=== PATIENT | female | born 1935 | race Caucasian/White ===

== ENCOUNTER 2017-02-17 06:44 | Inpatient (IN) | payer MEDICARE ==
[~2017-02-17] VITALS: Ht 147.3 cm; Wt 64.0 kg
--- NOTE | 2017-02-17 06:45 | NUR ---
TO BED 3 BIB PARAMEDICS C/O SYNCOPE. PT AAOX4 NO ACUTE DISTRESS NOTED, RESP EVEN AND UNLABORED. PLACE PT ON CARDIAC MONITORING, CONTINUOUS POX. ER MD AT BEDSIDE TO EVAL PT WITH ORDERS RECEIVED. PUPILS PERRLA, PT ABLE TO MOVE ALL EXTREMITIES WELL WITH BILATERAL EQUAL NURSES' REGISTRY DIRECTOR. CALL LIGHT WIHTIN REACH. WILL CONTINUE TO MONITOR PT.
[2017-02-17] MEDS ORDERED: IV NS 0.9% 500 ML BAG IV ONE (07:00)
[2017-02-17] MEDS ORDERED: ONDANSETRON HCL/PF 4 MG/2 ML VIAL IVP ONE (07:00)
--- NOTE | 2017-02-17 07:02 | NUR ---
PHLEBOBOTMIST AT BEDSIDE FOR BLOOD DRAW.
--- NOTE | 2017-02-17 07:04 | NUR ---
PT MERARI LIZZIE , .
--- NOTE | 2017-02-17 07:07 | NUR ---
TEMP UNABLE TO BE OBTAINED AT THIS TIME, PT REFUSING RECTAL TEMP, MADE AWARE
[2017-02-17] MEDS ORDERED: ONDANSETRON HCL/PF 4 MG/2 ML VIAL ONE (07:13)
[2017-02-17 07:14] LABS: BASOPHILS % (AUTO) 0.2 % (0.0-2.0); EOSINOPHILS % (AUTO) 0.5 % (0.0-6.0); HEMATOCRIT 39 % (33-45); HEMOGLOBIN 12.8 g/dL (11.5-14.8); LYMPHOCYTES # (AUTO) 0.8 /CMM (0.8-4.8); LYMPHOCYTES % (AUTO) 10.6 % (20.0-44.0); MEAN CORPUSCULAR HEMOGLOBIN 30 PG (26.0-33.0); MEAN CORPUSCULAR HGB CONC 33 g/dl (31.0-36.0); MEAN CORPUSCULAR VOLUME 91 fL (82-100); MONOCYTES # (AUTO) 0.2 /CMM (0.1-1.30); MONOCYTES % (AUTO) 3.2 % (2.0-12.0); NEUTROPHILS # (AUTO) 6.6 /CMM (1.8-8.9); NEUTROPHILS % (AUTO) 85.5 % (43.0-81.0); PLATELET COUNT (AUTO) 184 /CMM (150-450); RDW COEFFICIENT OF VARIATION 13.1 (11.5-15.0); RED BLOOD CELL COUNT(AUTO) 4.28 MIL/uL (4.0-5.2); WHITE BLOOD COUNT (AUTO) 7.7 K/uL (4.3-11.0)
--- NOTE | 2017-02-17 07:16 | NUR ---
RN AT BEDSIDE TO MEDICATE PT.
--- NOTE | 2017-02-17 07:16 | NUR ---
REPORT GIVEN TO AM SHIFT MAKSIM REED.
[2017-02-17 07:38] LABS: TROPONIN I 0.154 ng/mL (0.00-0.056)
--- NOTE | 2017-02-17 07:40 | NUR ---
FAMILY MEMBER AT BS AND UPDATED WITH POC.
[2017-02-17 07:42] LABS: CALCIUM, SERUM 10.2 mg/dL (8.5-10.1); CARBON DIOXIDE 24 mmol/L (21-32); CHLORIDE 94 mmol/L (98-107); CREATININE 0.8 mg/dL (0.6-1.3); GLUCOSE 111 mg/dL (74-106); POTASSIUM 4.2 mmol/L (3.5-5.1); SODIUM SERUM 130 mmol/L (136-145); UREA NITROGEN, BLOOD 15 mg/dL (7-18)
[2017-02-17] MEDS ORDERED: IV NS 0.9% 500 ML IV ONE (08:30)
[2017-02-17] MEDS ORDERED: IV NS 0.9% 1,000 ML IV PRN (08:36)
--- NOTE | 2017-02-17 08:47 | NUR ---
REPORT GIVEN TO UQENTIN SCHAEFFER FOR TELE 310.
[2017-02-17] MEDS ORDERED: CHLO25TA2 PO (08:51)
[2017-02-17] MEDS ORDERED: PRAV20TA4 PO (08:51)
[2017-02-17] MEDS ORDERED: ASPI-991 PO (08:51)
[2017-02-17] MEDS ORDERED: TEMA15CA PO (08:51)
[2017-02-17] MEDS ORDERED: DILT-48 PO (08:51)
[2017-02-17] MEDS ORDERED: BUDE10.22 IH (08:51)
[2017-02-17] MEDS ORDERED: OMEP20CA10 PO (08:51)
[2017-02-17] MEDS ORDERED: ESTR0.5T PO (08:51)
[2017-02-17] MEDS ORDERED: BUDE180A IH (08:51)
[2017-02-17] MEDS ORDERED: ACET-2605 PO (08:51)
[2017-02-17] MEDS ORDERED: LORA10TA7 PO (08:51)
[2017-02-17] MEDS ORDERED: FLUT16SP16 NS (08:51)
[2017-02-17] MEDS ORDERED: LISI40TA4 PO (08:51)
[2017-02-17] MEDS ORDERED: POLY17PO4 PO (08:52)
[2017-02-17] MEDS ORDERED: HYDROCODONE/APAP 5/325MG 1 EACH TABLET PO PRN (09:00)
[2017-02-17] MEDS ORDERED: FLUTICASONE PROPIONATE 16 GM BOTTLE NS SCH (09:00)
[2017-02-17] MEDS ORDERED: ACETAMINOPHEN 325 MG TABLET PO PRN (09:00)
[2017-02-17] MEDS ORDERED: MAG HYDROX/AL HYDROX/SIMETH 30 ML UDC PO PRN (09:00)
[2017-02-17] MEDS ORDERED: HYDROCODONE/APAP 10/325MG 1 EA TABLET PO PRN (09:00)
[2017-02-17] MEDS ORDERED: MAGNESIUM HYDROXIDE 30 ML UDC PO PRN (09:00)
[2017-02-17] MEDS ORDERED: TEMAZEPAM 15 MG CAPSULE PO PRN (09:00)
[2017-02-17] MEDS ORDERED: ONDANSETRON HCL/PF 4 MG/2 ML VIAL IVP PRN (09:00)
[2017-02-17] MEDS ORDERED: ESTRADIOL 1 MG TABLET PO SCH (09:00)
--- NOTE | 2017-02-17 09:29 | NUR ---
DR. JANG AT BS.
[2017-02-17] MEDS: ASPIRIN EC 81 MG TABLET.DR PO SCH (10:33)
[2017-02-17] MEDS: FAMOTIDINE (20 MG) 20 MG TABLET PO SCH (10:33)
[2017-02-17] MEDS: DILTIAZEM HCL CD 240 MG PO SCH (10:33)
[2017-02-17] MEDS: LISINOPRIL (20MG) 20 MG TABLET PO SCH (10:34)
[2017-02-17] MEDS: LORATADINE 10 MG TABLET PO SCH (10:34)
[2017-02-17] MEDS: ENOXAPARIN SODIUM 40 MG/0.4 ML DISP.SYRIN SQ SCH (10:36)
[2017-02-17] MEDS: BUDESONIDE RESPULE INH 0.25 MG/2 ML AMPUL.NEB NEB SCH (10:39)
[2017-02-17] MEDS: FLUTICASONE/VILANTEROL 1 EACH BLST.W.DEV IH SCH (10:43)
[2017-02-17] MEDS: FLUTICASONE PROPIONATE 16 GM BOTTLE NS SCH (11:04)
[2017-02-17] MEDS: ESTRADIOL 1 MG TABLET PO SCH (11:04)
--- NOTE | 2017-02-17 11:11 | NUR ---
TEL RN ADMITTING NOTES PATIENT ADMITTED TO UNIT VIA GURNEY ACCOMPANIED BY AND ER NURSE DEREK. A/O X3 AND VERBALLY RESPONSIVE, NO C/O PAIN OR SYNCOPE AT THIS TIME. 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 PT ORIENTED TO ROOM/UNIT. PT PLACED ON TELE-MONITORING WITH CURRENT READING OF SINUS RHYTHM AND HR OF 69. PT ON ROOM AIR, BREATHING EVEN AND UNLABORED. SKIN IS INTACT. PT WITH IV ACCESS ON RIGHT WRIST G#18, IVF OF NS @ 75ML/HR STARTED, NO INFILTRATION NOTED. BED PLACED IN LOW AND LOCKED POSITION. CALL LIGHT AND BEDSIDE TABLE PLACED WITHIN REACH OF PT. WILL CONTINUE TO MONITOR PT ACCORDINGLY.
[2017-02-17 12:00] VITALS: BP 122/71
[2017-02-17 16:00] VITALS: BP 111/54
--- NOTE | 2017-02-17 18:58 | NUR ---
MERCHANT POLICE CLOSING NOTES PT RESTING IN BED AT MODERATE HIGH BACKREST POSITION. A/O X 3, SAME ABLE TO VERBALIZED NEEDS AND CONCERNS. ON ROOM AIR, BREATHING WELL WITH NO SOB NOTED. ON TELE-MONITORING WITH CURRENT READING OF SR AND HR OF 72, NO C/O CHEST PAIN OR DIZZINESS THROUGHOUT THE DAY. IV ACCESS ON RIGHT WRIST G#18 INTACT AND PATENT WITH IVF OF NS @ 75 ML INFUSING WELL, NO SIGNS OF INFILTRATION NOTED. HOB KEPT ELEVATED. MAINTAINED BED IN LOW AND LOCKED POSITION. CALL LIGHT AND BEDSIDE TABLE WITHIN REACH OF PT. ALL NEEDS AND CARE ATTENDED WELL. WILL ENDORSED TO RECONNAISSANCE CREWMEMBER NURSE FOR [place].
[2017-02-17 20:00] VITALS: BP 139/72
[2017-02-17] MEDS ORDERED: ATORVASTATIN 10 MG TABLET ONE (22:54)
[2017-02-17] MEDS: ATORVASTATIN 10 MG TABLET PO SCH (23:07)
[2017-02-18] VITALS: BP 139/80
[2017-02-18 04:00] VITALS: BP 129/69
[2017-02-18 06:40] LABS: BASOPHILS % (AUTO) 0.2 % (0.0-2.0); HEMATOCRIT 32 % (33-45); HEMOGLOBIN 11.2 g/dL (11.5-14.8); LYMPHOCYTES # (AUTO) 0.7 /CMM (0.8-4.8); LYMPHOCYTES % (AUTO) 23.3 % (20.0-44.0); MEAN CORPUSCULAR HEMOGLOBIN 31 PG (26.0-33.0); MEAN CORPUSCULAR HGB CONC 35 g/dl (31.0-36.0); MEAN CORPUSCULAR VOLUME 90 fL (82-100); MONOCYTES # (AUTO) 0.3 /CMM (0.1-1.30); MONOCYTES % (AUTO) 9.7 % (2.0-12.0); NEUTROPHILS # (AUTO) 2.1 /CMM (1.8-8.9); NEUTROPHILS % (AUTO) 66.8 % (43.0-81.0); PLATELET COUNT (AUTO) 187 /CMM (150-450); WHITE BLOOD COUNT (AUTO) 3.2 K/uL (4.3-11.0)
[2017-02-18 06:56] LABS: CALCIUM, SERUM 8.6 mg/dL (8.5-10.1); CARBON DIOXIDE 27 mmol/L (21-32); CHLORIDE 102 mmol/L (98-107); CREATININE 0.7 mg/dL (0.6-1.3); GLUCOSE 88 mg/dL (74-106); MAGNESIUM 1.9 mg/dL (1.8-2.4); PHOSPHORUS 2.9 mg/dL (2.5-4.9); POTASSIUM 3.9 mmol/L (3.5-5.1); SODIUM SERUM 136 mmol/L (136-145); UREA NITROGEN, BLOOD 8 mg/dL (7-18)
[2017-02-18 07:15] LABS: CHOLESTEROL 182 mg/dL (<200); HDL CHOLESTEROL 75 mg/dL (40-60); LDL 90 mg/dL (0-99); THYROID STIMULATING HORMONE 0.658 uIU/mL (0.358-3.74); TRIGLYCERIDES 103 mg/dL (30-150)
--- NOTE | 2017-02-18 07:50 | NUR ---
SHOT PEEN OPERATOR OPENING NOTES PT RECEIVED AWAKE IN BED IN NO ACUTE SIGNS OF DISTRESS. A/O X 3, VERBALLY RESPONSIVE, DENIES PAIN OR ANY DISCOMFORTS AT THIS TIME. ON TELE-MONITORING WITH CURRENT READING OF SR AND HR OF 67, NO C/O CHEST PAIN OR DIZZINESS VOICED. ON ROOM AIR, BREATHING WELL WITH NO SOB NOTED. IV ACCESS ON RIGHT WRIST G#18 INTACT AND PATENT WITH IVF OF NS @ 75 ML INFUSING WELL, NO SIGNS OF INFILTRATION NOTED. HOB KEPT ELEVATED. BED IN LOW AND LOCKED POSITION. CALL LIGHT AND BEDSIDE TABLE WITHIN REACH OF PT. WILL CONTINUE TO MONITOR PT ACCORDINGLY.
[2017-02-18 08:00] VITALS: BP 136/63
--- NOTE | 2017-02-18 08:32 | NUR ---
RN NOTES PT SEEN BY DR JANG WITH ORDER TO DISCONTINUE TELE-MONITORING. ORDERED CARRIED OUT. WILL CONTINUE TO MONITOR.
[2017-02-18] MEDS: BUDESONIDE RESPULE INH 0.25 MG/2 ML AMPUL.NEB NEB SCH (08:49)
[2017-02-18] MEDS ORDERED: ATORVASTATIN 10 MG TABLET PO SCH (09:00)
[2017-02-18] MEDS: IV NS 0.9% 1,000 ML IV PRN ×2 (09:02→16:59)
[2017-02-18] MEDS: FLUTICASONE/VILANTEROL 1 EACH BLST.W.DEV IH SCH (09:41)
[2017-02-18] MEDS: FLUTICASONE PROPIONATE 16 GM BOTTLE NS SCH (09:43)
[2017-02-18] MEDS: LORATADINE 10 MG TABLET PO SCH (09:44)
[2017-02-18] MEDS: ESTRADIOL 1 MG TABLET PO SCH (09:44)
[2017-02-18] MEDS: ATORVASTATIN 10 MG TABLET PO SCH (09:44)
[2017-02-18] MEDS: FAMOTIDINE (20 MG) 20 MG TABLET PO SCH (09:45)
[2017-02-18] MEDS: DILTIAZEM HCL CD 240 MG PO SCH (09:46)
[2017-02-18] MEDS: ENOXAPARIN SODIUM 40 MG/0.4 ML DISP.SYRIN SQ SCH (09:51)
[2017-02-18] MEDS: ASPIRIN EC 81 MG TABLET.DR PO SCH (09:53)
[2017-02-18] MEDS: LISINOPRIL (20MG) 20 MG TABLET PO SCH (09:54)
[2017-02-18] MEDS ORDERED: POLYETHYLENE GLYCOL 3350 17 GM POWD.PACK PO PRN (14:00)
[2017-02-18 16:00] VITALS: BP 103/58
--- NOTE | 2017-02-18 18:03 | NUR ---
RN DISCHARGED NOTES PT DISCHARGED HOME IN STABLE CONDITION. LEFT UNIT VIA WHEELCHAIR ACCOMPANIED BY AND CLINICAL NURSING INTERN TO LOBBY AT 1745H. PT IS A/O X3, NO COMPLAINTS OF PAIN OR DISTRESS ON DISCHARGE. ALL NEEDS AND CARE ATTENDED WELL. V/S TAKEN AND RECORDED. SKIN IS INTACT. NO FLU OR PNA VACCINES GIVEN PT VERBALIZED THAT SHE ALREADY RECEIVED THEM THIS YEAR AND JUST FORGOT WHEN. ALL BELONGINGS CHECKED, COUNTED AND SIGNED FORM. HEALTH TEACHINGS GIVEN TO PT AND AND THEY VERBALIZED UNDERSTANDING. ALL PAPERS WORKS SIGNED. MD LONGO CHARGE NURSE AWARE OF DISCHARGE.
== END 2017-02-18 17:45 | disposition home or self-care (01) | DRG 73 ==
LOC: ER 06:46 → TELE 08:53 → MED 02-18 10:59
PROVIDERS: ADMIT Nurse Practitioner Acute Care; ATTEND Nurse Practitioner Acute Care
DX: G90.8 Other disorders of autonomic nervous system (principal); I21.A1 Myocardial infarction type 2; E86.1 Hypovolemia; E87.1 Hypo-osmolality and hyponatremia; W18.11XA Fall from or off toilet without subsequent striking against object, initial encounter; I35.0 Nonrheumatic aortic (valve) stenosis; Z95.2 Presence of prosthetic heart valve; Y92.002 Bathroom of unspecified non-institutional (private) residence as the place of occurrence of the external cause; Z88.8 Allergy status to other drugs, medicaments and biological substances; Z91.041 Radiographic dye allergy status; I10 Essential (primary) hypertension; E78.5 Hyperlipidemia, unspecified; J45.909 Unspecified asthma, uncomplicated; Z79.899 Other long term (current) drug therapy; Z79.82 Long term (current) use of aspirin
CPT/HCPCS: 36415; 71010-TC; 80048-TC; 80061-TC; 83735-TC; 84100-TC; 84443-TC; 84484-TC; 85025-TC; 87081-TC; 93307-TC; A4606; J1650; J2405; J7030; J7040; Z7610

== ENCOUNTER 2017-12-25 17:37 | Inpatient (IN) | payer MEDICARE, BC ==
[~2017-12-25] VITALS: Ht 152.4 cm; Wt 63.5 kg
[~2017-12-25 17:37] MED LIST: ACET-2605 PO; ASPI-1152 PO; BUDE10.22 IH; BUDE180A IH; CHLO25TA2 PO; DILT-11 PO; ESTR0.5T PO; FLUT16SP16 NS; LISI40TA4 PO; LORA10TA7 PO; OMEP20CA10 PO; POLY17PO4 PO; PRAV20TA4 PO; TEMA15CA PO
--- NOTE | 2017-12-25 18:02 | NUR ---
aaox3, came to er c/o abdominal discomfort and constipation x 4 days. rr is even and unlabored with nad noted. skin is warm and dry. awaiting md for eval.
[2017-12-25 18:29] LABS: BASOPHILS # (AUTO) 0.2 /CMM (0.0-0.2); BASOPHILS % (AUTO) 1.9 % (0.0-2.0); HEMATOCRIT 33 % (33-45); HEMOGLOBIN 11.4 g/dL (11.5-14.8); LYMPHOCYTES # (AUTO) 1.1 /CMM (0.8-4.8); LYMPHOCYTES % (AUTO) 13.9 % (20.0-44.0); MEAN CORPUSCULAR HGB CONC 34 g/dl (31.0-36.0); MEAN CORPUSCULAR VOLUME 86 fL (82-100); MONOCYTES # (AUTO) 0.8 /CMM (0.1-1.30); MONOCYTES % (AUTO) 10.1 % (2.0-12.0); NEUTROPHILS # (AUTO) 5.8 /CMM (1.8-8.9); NEUTROPHILS % (AUTO) 72.1 % (43.0-81.0); PLATELET COUNT (AUTO) 312 /CMM (150-450); RDW COEFFICIENT OF VARIATION 12.1 (11.5-15.0); RED BLOOD CELL COUNT(AUTO) 3.86 MIL/uL (4.0-5.2); WHITE BLOOD COUNT (AUTO) 8.1 K/uL (4.3-11.0)
--- NOTE | 2017-12-25 18:35 | NUR ---
Patient is transported for CT.
[2017-12-25 18:39] LABS: CALCIUM, SERUM 9.4 mg/dL (8.5-10.1); CARBON DIOXIDE 25 mmol/L (21-32); CHLORIDE 91 mmol/L (98-107); CREATININE 0.6 mg/dL (0.6-1.3); GLUCOSE 95 mg/dL (74-106); POTASSIUM 3.6 mmol/L (3.5-5.1); SODIUM SERUM 127 mmol/L (136-145); UREA NITROGEN, BLOOD 5 mg/dL (7-18)
[2017-12-25 18:45] LABS: ALANINE AMINOTRANSFERASE 17 U/L (12-78); ALBUMIN 4.1 g/dL (3.4-5.0); ALKALINE PHOSPHATASE 95 U/L (46-116); ASPARTATE AMINOTRANSFERASE 23 U/L (15-37); BILIRUBIN,DIRECT 0.1 mg/dL (0.0-0.2); BILIRUBIN,TOTAL 0.4 mg/dL (0.2-1.0); LIPASE 412 U/L (73-393); TOTAL PROTEIN, SERUM 6.8 g/dL (6.4-8.2)
[2017-12-25 18:52] LABS: APPEARANCE,URINE Clear (CLEAR); BILIRUBIN,URINE Negative (NEGATIVE); BLOOD, URINE Negative Ery/uL (NEGATIVE); COLOR,URINE Yellow (YELLOW); KETONES,URINE Negative (NEGATIVE); LEUKOCYTE ESTERASE ,URINE Small (NEGATIVE); NITRITE, URINE Negative (NEGATIVE); PROTEIN,URINE Negative (NEGATIVE); UGLUCOSE Negative (NEGATIVE); UROBILINOGEN,URINE 0.2 EU/dL (0.2)
[2017-12-25 18:59] LABS: BACTERIA,URINE 2+ /HPF (None Seen); RBC,URINE NONE SEEN /HPF (0-2); SQUAMOUS EPITHELIAL CELL,UR Few /HPF (None Seen)
--- NOTE | 2017-12-25 19:15 | NUR ---
Report given to tennille Barbosa for [place].
--- NOTE | 2017-12-25 19:17 | NUR ---
RECEIVED REPORT FROM MAKSIM KNOTT FOR [place]. PT RESTING IN BED WITH NO S/S OF DISTRESS NOTED. WILL CONTINUE TO MONITOR PT.
--- NOTE | 2017-12-25 20:17 | NUR ---
CALLED [employer] ORNAMENTAL IRON WORKER WAS PAGED.
[2017-12-25] MEDS ORDERED: LEVOFLOXACIN (500MG) 500 MG TABLET PO ONE (20:30)
[2017-12-25] MEDS ORDERED: LEVOFLOXACIN (500MG) 500 MG TABLET ONE (20:38)
--- NOTE | 2017-12-25 20:41 | NUR ---
ADMITTING PHYSICIAN BEDSIDE
--- NOTE | 2017-12-25 20:44 | NUR ---
REPORT GIVEN TO JURGEN HARRIS FOR [place]
[2017-12-25] MEDS ORDERED: IV NS 0.9% 1,000 ML IV PRN (21:03)
[2017-12-25 21:30] VITALS: BP 152/82
[2017-12-25] MEDS ORDERED: ONDANSETRON HCL/PF 4 MG/2 ML VIAL IVP PRN (21:30)
[2017-12-25] MEDS ORDERED: MAG HYDROX/AL HYDROX/SIMETH 30 ML UDC PO PRN (21:30)
[2017-12-25] MEDS ORDERED: HYDROCODONE/APAP 5/325MG 1 EACH TABLET PO PRN (21:30)
[2017-12-25] MEDS ORDERED: MAGNESIUM HYDROXIDE 30 ML UDC PO PRN (21:30)
[2017-12-25] MEDS ORDERED: Z GUARD REMEDY 2 OZ OINT TP PRN (21:30)
[2017-12-25] MEDS ORDERED: ACETAMINOPHEN 325 MG TABLET PO PRN (21:30)
--- NOTE | 2017-12-25 21:30 | NUR ---
RN ADMITTING NOTES RECEIVED REPORT FROM LOW PRESSURE BOILER OPERATOR KRISTINE. Pt ARRIVED TO THE FLOOR VIA WHEELCHAIR. Pt IS A/OX4, VERBAL, ABLE TO MAKE NEEDS KNOWN. NO S/S OF ACUTE DISTRESS OR SOB NOTED. IV ACCESS ON RAC #20G. FAMILY VISITING AT BEDSIDE. SAFETY MEASURES IN PLACE. BED LOW, LOCKED, HOB ELEVATED, SIDE RAILS UP, CALL LIGHT AND BEDSIDE TABLE WITHIN REACH. WILL CONTINUE TO MONITOR Pt THROUGHOUT THE NIGHT FOR SAFETY.
[2017-12-25 21:35] VITALS: BP 132/88
--- NOTE | 2017-12-25 22:45 | NUR ---
RN NOTES SPOKE WITH STEFFI FLORES NP ON THE PHONE TO CLARIFY DIET ORDER. PER SANDRA REGULAR DIET IS OK, BUT NPO EXCEPT MEDS AFTER MIDNIGHT DUE TO MRI FOR THE NEXT DAY & ICE CHIPS ARE OK AFTER MN.
[2017-12-25] MEDS: LORAZEPAM 1 MG TABLET PO PRN (23:38)
--- NOTE | 2017-12-26 | NUR ---
MERARI () - CELL ; HOME DELFINA (DAUGHTER): CELL
[2017-12-26 06:18] LABS: BASOPHILS % (AUTO) 0.2 % (0.0-2.0); HEMATOCRIT 33 % (33-45); HEMOGLOBIN 11.1 g/dL (11.5-14.8); LYMPHOCYTES # (AUTO) 0.9 /CMM (0.8-4.8); LYMPHOCYTES % (AUTO) 17.3 % (20.0-44.0); MEAN CORPUSCULAR HGB CONC 34 g/dl (31.0-36.0); MEAN CORPUSCULAR VOLUME 88 fL (82-100); MONOCYTES # (AUTO) 0.7 /CMM (0.1-1.30); MONOCYTES % (AUTO) 12.1 % (2.0-12.0); NEUTROPHILS # (AUTO) 3.8 /CMM (1.8-8.9); NEUTROPHILS % (AUTO) 70.4 % (43.0-81.0); PLATELET COUNT (AUTO) 323 /CMM (150-450); RDW COEFFICIENT OF VARIATION 12.8 (11.5-15.0); RED BLOOD CELL COUNT(AUTO) 3.77 MIL/uL (4.0-5.2); WHITE BLOOD COUNT (AUTO) 5.4 K/uL (4.3-11.0)
[2017-12-26 06:27] LABS: ALANINE AMINOTRANSFERASE 19 U/L (12-78); ALBUMIN 3.8 g/dL (3.4-5.0); ALKALINE PHOSPHATASE 91 U/L (46-116); ASPARTATE AMINOTRANSFERASE 18 U/L (15-37); BILIRUBIN,DIRECT 0.1 mg/dL (0.0-0.2); BILIRUBIN,TOTAL 0.4 mg/dL (0.2-1.0); CALCIUM, SERUM 9.1 mg/dL (8.5-10.1); CARBON DIOXIDE 26 mmol/L (21-32); CHLORIDE 93 mmol/L (98-107); CREATININE 0.6 mg/dL (0.6-1.3); GLUCOSE 102 mg/dL (74-106); MAGNESIUM 1.8 mg/dL (1.8-2.4); PHOSPHORUS 4.2 mg/dL (2.5-4.9); POTASSIUM 3.3 mmol/L (3.5-5.1); SODIUM SERUM 125 mmol/L (136-145); TOTAL PROTEIN, SERUM 6.8 g/dL (6.4-8.2); UREA NITROGEN, BLOOD 5 mg/dL (7-18)
[2017-12-26 06:35] LABS: CHOLESTEROL 179 mg/dL (<200); HDL CHOLESTEROL 82 mg/dL (40-60); LDL 89 mg/dL (0-99); THYROID STIMULATING HORMONE 2.282 uIU/mL (0.358-3.74); TRIGLYCERIDES 62 mg/dL (30-150)
--- NOTE | 2017-12-26 06:51 | NUR ---
RN CLOSING NOTES NO SIGNIFICANT CHANGES IN Pt's CONDITION. Pt REMAINS STABLE AT THIS TIME. NO S/S OF ACUTE DISTRESS OR SOB NOTED DURING THE NIGHT. RESPIRATIONS EVEN AND UNLABORED. ALL NEEDS MET AND ATTENDED TO. SAFETY MEASURES IN PLACE. BED LOW, LOCKED, HOB ELEVATED, SIDE RAILS UP, CALL LIGHT AND BEDSIDE TABLE WITHIN REACH. WILL ENDORSE TO DAYSHIFT RN FOR Pt's [place].
--- NOTE | 2017-12-26 07:11 | NUR ---
MS RN OPENING NOTE RECEIVED PATIENT IN BED. ALERT ORIENTED X4. ON ROOM AIR TOLERATING WELL. IN NO APPARENT DISTRESS OR DISCOMFORT AT THIS TIME. RESPIRATIONS EVEN AND UNLABORED. DENIES PAIN AND SOB AT THIS TIME. PATIENT IS ABLE TO COMMUNICATE NEEDS. AMBULATES TO THE BSC OR BATHROOM INDEPENDENTLY WITH USE OF WALKER. RIGHT AC 20G. IVC WITH FLUIDS RUNNING AT 60ML/HR. PATIENT KEPT CLEAN AND COMFORTABLE, ALL NEEDS ATTENDED. PATIENT KEPT NPO SINCE MIDNIGHT PER NIGHT RN. SAFETY MEASURES IN PLACE, BED IN LOW LOCKED POSITION, SIDE RAILS UP X2, CALL LIGHT WITHIN EASY REACH. WILL CONTINUE TO MONITOR.
[2017-12-26] MEDS ORDERED: Medication Not On Formulary EA (Omeprazole 20 MG) PO SCH (07:30)
[2017-12-26 08:00] VITALS: BP 137/65
[2017-12-26] MEDS: LORATADINE 10 MG TABLET PO SCH (08:44)
[2017-12-26] MEDS: DILTIAZEM HCL CD 240 MG PO SCH (08:44)
[2017-12-26] MEDS: ASPIRIN EC 81 MG TABLET.DR PO SCH (08:45)
[2017-12-26] MEDS: PANTOPRAZOLE 40 MG TABLET.DR PO SCH (08:45)
[2017-12-26] MEDS: SENNOSIDES/DOCUSATE SODIUM 1 TAB TABLET PO SCH (08:45)
[2017-12-26] MEDS: POLYETHYLENE GLYCOL 3350 17 GM POWD.PACK PO SCH (08:46)
[2017-12-26] MEDS: LISINOPRIL (20MG) 20 MG TABLET PO SCH (08:46)
[2017-12-26] MEDS ORDERED: Budesonide/Formoterol Fumarate (Symbicort 80-4.5 Mcg Inh INH PRN ×2 (09:00→10:30)
[2017-12-26] MEDS ORDERED: BUDESONIDE INH SCH (09:00)
[2017-12-26] MEDS ORDERED: FLUTICASONE PROPIONATE 16 GM BOTTLE NS SCH (09:00)
[2017-12-26] MEDS: LORAZEPAM 1 MG TABLET PO PRN ×2 (09:48→20:24)
[2017-12-26] MEDS ORDERED: BUDESONIDE RESPULE INH 0.25 MG/2 ML AMPUL.NEB NEB PRN (10:30)
[2017-12-26] MEDS: FLUTICASONE PROPIONATE 16 GM BOTTLE NS SCH (10:51)
[2017-12-26] MEDS: ESTRADIOL 1 MG TABLET PO SCH (10:51)
[2017-12-26] MEDS: POTASSIUM CL. PREMIX PERIPHER. 50 ML IV SCH ×2 (11:29→13:25)
[2017-12-26 16:00] VITALS: BP 147/85
[2017-12-26] MEDS ORDERED: ATORVASTATIN 10 MG TABLET PO SCH (18:00)
[2017-12-26] MEDS ORDERED: PRAVASTATIN SODIUM 20 MG TABLET PO SCH (18:00)
--- NOTE | 2017-12-26 19:00 | NUR ---
MS RN CLOSING NOTE PATIENT IN BED. ALERT ORIENTED X4. ON ROOM AIR TOLERATING WELL. IN NO APPARENT DISTRESS OR DISCOMFORT AT THIS TIME. RESPIRATIONS EVEN AND UNLABORED. DENIES PAIN AND SOB AT THIS TIME. PATIENT IS ABLE TO COMMUNICATE NEEDS. AMBULATES TO THE BSC OR BATHROOM INDEPENDENTLY WITH USE OF WALKER. RIGHT AC 20G IVC WITH FLUIDS RUNNING AT 60ML/HR. PATIENT KEPT CLEAN AND COMFORTABLE, ALL NEEDS ATTENDED, ORDERS RENDERED, EMOTIONAL SUPPORT PROVIDED. SAFETY MEASURES IN PLACE, BED IN LOW LOCKED POSITION, SIDE RAILS UP X2, CALL LIGHT WITHIN EASY REACH. WILL ENDORSE TO PM NURSE FOR [place].
--- NOTE | 2017-12-26 19:30 | NUR ---
RN OPENING NOTES PT IS AWAKE AND ALERT, WALKING, VERBALIZES ANXIETY ABOUT RESULTS OF HER TEST. SHE IS IN ROOM AIR, TOLERATING WELL, NO SIGNS OF DISTRESS, NO LABORED BREATHING. IV ACCESS ON THE RIGHT AC 20G IS PATENT AND INTACT. PT REQUESTED TEMAZEPAM TO HELP SLEEP, CONTACTED DR. FLORES AND HE ORDERED THE MEDICATION. PT SAFETY MEASURES IN PLACED, CALL LIGHT WITHIN REACH. WILL CONTINUE TO MONITOR PT
[2017-12-26 20:00] VITALS: BP 135/75
[2017-12-26] MEDS ORDERED: TEMAZEPAM 15 MG CAPSULE PO PRN (20:00)
--- NOTE | 2017-12-26 20:24 | NUR ---
RN NOTES PT REQUESTED ATIVAN 1MG FOR HER ANXIETY.
[2017-12-26] MEDS: BUDESONIDE RESPULE INH 0.25 MG/2 ML AMPUL.NEB NEB SCH (20:36)
[2017-12-26] MEDS ORDERED: LEVOFLOXACIN (500MG) 500 MG TABLET PO SCH (22:00)
--- NOTE | 2017-12-26 22:28 | NUR ---
RN NOTES PT REQUESTED TEMAZEPAM 15MG TO HELP HER SLEEP FOR THE NIGHT
[2017-12-27] MEDS: PANTOPRAZOLE 40 MG TABLET.DR PO SCH (07:30)
--- NOTE | 2017-12-27 07:30 | NUR ---
RN CLOSING NOTES PT IS AWAKE AND ALERT. SHE IS IN ROOM AIR, TOLERATING WELL, NO SIGNS OF DISTRESS, NO LABORED BREATHING. IV ACCESS ON THE RIGHT AC 20G IS PATENT AND INTACT. PT IS NPO FOR POSSIBLE MRI WITH CONTRAST, AND ANXIOUS ABOUT THE TEST. I INFORMED [employer] ABOUT PT ALLERGY TO IODINE AND TO ENSURE THAT IF THE MRI IS DONE THAT ITS NOT GOING TO HAVE IODINE IN IT. SAFETY MEASURES IN PLACED, CALL LIGHT WITHIN REACH. ENDORSED CONTINUITY OF CARE TO THE ONCOMING RN
--- NOTE | 2017-12-27 07:46 | NUR ---
MS RN OPENING NOTES RECEIVED PT FROM NIGHTSHIFT NURSE IN STABLE CONDITION. PT IS A/O X3. NO SOB OR ACUTE SIGNS OF DISTRESS NOTED. BREATHING IS EVEN AND UNLABORED. PT ON RA AND SATING WELL. HE DENIES ANY PAIN AT THIS TIME. IV IN RIGHT AC NOTED TO BE PATENT AND INTACT. NO REDNESS OR SIGNS OF INFILTRATION NOTED. NPO STATUS MAINTAINED FOR PLANNED ABDOMINAL MRI WITH CONTRAST. WILL F/U WITH SUPERVISOR FUR DRESSING IN REGARDS TO CONTRAST ADMINISTRATION, PT IS ALLERGIC TO IODINE. BED IN LOW LOCKED POSITION, SIDE RAILS UP X2, CALL LIGHT WITHIN REACH. WILL CONTINUE TO MONITOR
[2017-12-27] MEDS: BUDESONIDE RESPULE INH 0.25 MG/2 ML AMPUL.NEB NEB SCH (07:50)
[2017-12-27 08:00] VITALS: BP 126/86
[2017-12-27 08:28] LABS: CALCIUM, SERUM 9.3 mg/dL (8.5-10.1); CARBON DIOXIDE 27 mmol/L (21-32); CHLORIDE 97 mmol/L (98-107); CREATININE 0.6 mg/dL (0.6-1.3); GLUCOSE 98 mg/dL (74-106); PHOSPHORUS 3.9 mg/dL (2.5-4.9); POTASSIUM 3.7 mmol/L (3.5-5.1); SODIUM SERUM 131 mmol/L (136-145); UREA NITROGEN, BLOOD 7 mg/dL (7-18)
[2017-12-27 08:32] LABS: THYROID STIMULATING HORMONE 1.185 uIU/mL (0.358-3.74); URIC ACID 2.9 mg/dL (2.6-7.2)
[2017-12-27 08:38] LABS: FERRITIN 68 ng/mL (8-388)
[2017-12-27 08:55] LABS: IRON, SERUM 41 ug/dl (50-175); TOTAL IRON BINDING CAPACITY 303 ug/dl (250-450)
[2017-12-27] MEDS: LISINOPRIL (20MG) 20 MG TABLET PO SCH (09:00)
[2017-12-27] MEDS: POLYETHYLENE GLYCOL 3350 17 GM POWD.PACK PO SCH (09:00)
[2017-12-27] MEDS: DILTIAZEM HCL CD 240 MG PO SCH (09:00)
[2017-12-27] MEDS: FLUTICASONE PROPIONATE 16 GM BOTTLE NS SCH (09:28)
[2017-12-27] MEDS: LORAZEPAM 1 MG TABLET PO PRN (10:13)
[2017-12-27] MEDS: SENNOSIDES/DOCUSATE SODIUM 1 TAB TABLET PO SCH (10:14)
[2017-12-27] MEDS: ASPIRIN EC 81 MG TABLET.DR PO SCH (10:14)
[2017-12-27] MEDS: LORATADINE 10 MG TABLET PO SCH (10:14)
[2017-12-27] MEDS: ESTRADIOL 1 MG TABLET PO SCH (10:25)
--- NOTE | 2017-12-27 13:32 | NUR ---
MS RN NOTES: MRI OF ABDOMEN WITH CONTRAST PT TAKEN DOWN TO MRI TRAILER VIA WHEELCHAIR IN STABLE CONDITION. CHECKLIST COMPLETED/SIGNED BY PT ALONG WITH CONSENT. SHE WAS KEPT NPO POST MIDNIGHT WITH THE EXCEPTION OF HER MORNING MEDICATIONS AND A FEW ICE CHIPS WHICH WAS APPROVED BY THE RAILCAR SWITCHER.
--- NOTE | 2017-12-27 14:40 | NUR ---
PT SHELBY FROM MRI IN STABLE CONDITION. WILL AWAIT RESULTS
[2017-12-27] MEDS ORDERED: LEVO500T2 PO (16:34)
--- NOTE | 2017-12-27 17:02 | NUR ---
MS SENIOR ACCOUNTING CLERK NOTES PT WAS DISCHARGED FROM FACILITY IN STABLE CONDITION. ALL NEEDS WERE MET DURING SHIFT. ALL DUE MEDS GIVEN. RESULTS OF ABDOMINAL MRI DISCUSSED WITH OSVALDO BAILEY PRIOR TO D/C. PER CHEMICAL RESEARCH WORKER "HAVE PT FOLLOW UP WITH PRIMARY DOCTOR IN A MONTH TO CONSIDER LIVER BIOPSY, OTHERWISE, SHE IS CLEARED FOR D/C". PT PROVIDED WITH IMAGING CD TO PROVIDE TO HER PRIMARY ALONG WITH ALL D/C PAPERWORK AND RESULTS. SHE AND HER VERBALIZED FULL UNDERSTANDING OF D/C INSTRUCTIONS. COPIES OF SIGNED FORMS PLACED IN PT'S CHART. SHE WAS ALSO PROVIDED WITH A COPY OF A WRITTEN PRESCRIPTION FOR LEVAQUIN WHICH WAS CALLED IN TO THE PT'S PREFERRED PHARMACY. IV WAS SUCCESSFULLY REMOVED WITH CATHETER TIP INTACT. SHE WAS SAFELY ESCORTED TO THE MAIN LOBBY WITH ALL BELONGINGS AND LEFT VIA PRIVATE VEHICLE DRIVEN BY HER
[2017-12-27] MEDS ORDERED: GADODIAMIDE 2.5 MMOL/5 ML VIAL IJ ONE (18:28)
[2017-12-27] MEDS ORDERED: GADODIAMIDE 5 MMOL/10 ML VIAL IJ ONE (18:28)
[2017-12-28] MEDS ORDERED: FERROUS SULFATE (325 MG) 325 MG/TAB TABLET PO SCH (09:00)
[2017-12-28 09:19] LABS: AFP, TUMOR MARKER 3.2 ng/mL (0.0-8.3); CARBOHYDRATE AG 19-9 9 U/mL (0-35)
== END 2017-12-27 16:30 | disposition home or self-care (01) | DRG 392 ==
LOC: ER 17:39 → MED 21:11
PROVIDERS: ADMIT Nurse Practitioner Acute Care; ATTEND Nurse Practitioner Acute Care
DX: D18.03 Hemangioma of intra-abdominal structures (principal); N39.0 Urinary tract infection, site not specified; E22.2 Syndrome of inappropriate secretion of antidiuretic hormone; E78.5 Hyperlipidemia, unspecified; I10 Essential (primary) hypertension; Z96.652 Presence of left artificial knee joint; Z95.2 Presence of prosthetic heart valve; Z87.891 Personal history of nicotine dependence; Z79.51 Long term (current) use of inhaled steroids; Z88.8 Allergy status to other drugs, medicaments and biological substances; Z91.041 Radiographic dye allergy status; Z79.899 Other long term (current) drug therapy; Z79.82 Long term (current) use of aspirin; J45.909 Unspecified asthma, uncomplicated; F41.9 Anxiety disorder, unspecified; K59.09 Other constipation; I35.0 Nonrheumatic aortic (valve) stenosis; M19.90 Unspecified osteoarthritis, unspecified site; D63.8 Anemia in other chronic diseases classified elsewhere; E86.1 Hypovolemia; T50.2X5A Adverse effect of carbonic-anhydrase inhibitors, benzothiadiazides and other diuretics, initial encounter; Y92.009 Unspecified place in unspecified non-institutional (private) residence as the place of occurrence of the external cause; T40.605A Adverse effect of unspecified narcotics, initial encounter; D50.9 Iron deficiency anemia, unspecified; B96.20 Unspecified Escherichia coli [E. coli] as the cause of diseases classified elsewhere; E87.6 Hypokalemia
CPT/HCPCS: 36415; 74181-TC; 74182-TC; 80048-TC; 80061-TC; 80076-TC; 81000-TC; 82105; 82378; 82728-TC; 83540-TC; 83690-TC; 83735-TC; 84100-TC; 84443-TC; 84550-TC; 85025-TC; 86301; 86706; 87081-TC; 87086-TC; 87186-TC; 87340; 94799-TC; A4606; G0378; J3480; J7030; Z7610

== ENCOUNTER → 2023-09-12 | Emergency (ER) | payer MEDICARE, BC ==
[~2023-09-12] VITALS: Ht 167.6 cm; Wt 77.1 kg
[~2023-09-12] MED LIST changes: -ASPI-1152 PO; +ASPI-1420 PO; -DILT-11 PO; +DILT-5 PO; +IV NS 0.9% 500 ML BAG IV ONE; +LEVO500T2 PO; +LISI40TA13 PO; -LISI40TA4 PO; -OMEP20CA10 PO; +OMEP20CA15 PO
[2023-09-12] MEDS: ONDANSETRON 4 MG TAB.RAPDIS SL ONE (22:30)
[2023-09-12 23:31] VITALS: BP 191/72; TEMP 98.3; O2SAT 99
== END | disposition home or self-care (01) ==
LOC: ER 21:40
DX: R11.0 Nausea (principal); I10 Essential (primary) hypertension; F41.9 Anxiety disorder, unspecified; F40.240 Claustrophobia; Z85.9 Personal history of malignant neoplasm, unspecified; Z88.8 Allergy status to other drugs, medicaments and biological substances; Z91.040 Latex allergy status